=== PATIENT | female | born 1955 | race Caucasian/White ===

== ENCOUNTER 2022-09-09 06:05 | Inpatient (IN) | payer MEDICARE, BC ==
[~2022-09-09] VITALS: Ht 160 cm; Wt 74.8 kg
[~2022-09-09 06:05] MED LIST: LISI40TA4 PO; MAGN200T PO; METO1TAB7 PO; PANT40TA29 PO; VITA100093 PO; ceFAZolin SOD 2 GM in IV 1 EA IV ONE
[2022-09-09] MEDS ORDERED: LR 1,000 ML IV SCH ×2 (06:25→13:00)
[2022-09-09] MEDS ORDERED: propofoL 200 MG/20 ML VIAL As Ordered ONE (07:17)
[2022-09-09] MEDS ORDERED: KETOROLAC 60MG 2ML VIAL As Ordered ONE (07:17)
[2022-09-09] MEDS ORDERED: ACETAMINOPHEN 1000MG 100ML IV BAG As Ordered ONE ×2 (07:17→08:27)
[2022-09-09] MEDS ORDERED: ROCURONIUM BROMIDE 50MG/5ML VIAL As Ordered ONE ×2 (07:17→08:48)
[2022-09-09] MEDS ORDERED: SUGAMMADEX SODIUM 500 MG/5 ML VIAL (BRIDION) As Ordered ONE (07:17)
[2022-09-09] MEDS ORDERED: ONDANSETRON 4MG 2ML VIAL As Ordered ONE (07:17)
[2022-09-09] MEDS ORDERED: HYDROmorphone HCL 2MG/ML 1ML VIAL As Ordered ONE (07:17)
[2022-09-09] MEDS ORDERED: LIDOCAINE 2% 100MG/5ML SDV (FOR ANES.) As Ordered ONE (07:17)
[2022-09-09] MEDS ORDERED: fentaNYL 100 MCG/2 ML INJECTION As Ordered ONE (07:18)
[2022-09-09] MEDS ORDERED: MIDAZOLAM INJ 2MG/2ML VIAL As Ordered ONE (07:18)
[2022-09-09] MEDS ORDERED: SCOPOLAMINE 1MG TRANSDERMAL PATCH TOP ONE (07:25)
[2022-09-09] MEDS ORDERED: LIDOCAINE 1% SDV 30ML VIAL As Ordered ONE (07:29)
[2022-09-09] MEDS ORDERED: MAGN400C2 PO (07:38)
[2022-09-09] MEDS ORDERED: PERCOCET 5MG/325MG TAB PO PRN ×2 (07:40)
[2022-09-09] MEDS ORDERED: ONDANSETRON 4MG 2ML VIAL IV PRN ×2 (07:40→13:00)
[2022-09-09] MEDS ORDERED: HOME MED LIST COMPLETE! XX SCH (07:40)
[2022-09-09] MEDS ORDERED: MANNITOL 25% 12.5GM 50ML VIAL As Ordered ONE (09:33)
[2022-09-09] MEDS ORDERED: ceFAZolin 1GM VIAL As Ordered ONE (11:07)
[2022-09-09] MEDS ORDERED: PHENYLephrine 500MCG 5ML (100MCG/ML) SYRINGE As Ordered ONE (11:25)
[2022-09-09] MEDS ORDERED: ePHEDrine SULFATE 25 MG/5 ML(5MG/ML) SYRINGE As Ordered ONE (11:25)
[2022-09-09] MEDS ORDERED: PHENYLEPHRINE 10MG/ML 1ML VIAL As Ordered ONE (12:04)
[2022-09-09] MEDS ORDERED: oxyCODONE 5MG TAB PO PRN (13:00)
[2022-09-09] MEDS ORDERED: fentaNYL 100 MCG/2 ML INJECTION IV PRN (13:00)
[2022-09-09] MEDS ORDERED: HYDROMORPHONE HCL 0.5 MG/ 0.5 ML SYRINGE IV PRN (13:00)
[2022-09-09] MEDS ORDERED: NALOXONE INJ 0.4MG/1ML VIAL IV STA (14:06)
[2022-09-09 14:10] LABS: HEMATOCRIT 39.7 % (36.0-47.0); HEMOGLOBIN 13.5 g/dl (12.0-15.5); MEAN CORPUSCULAR HEMOGLOBIN 32.4 pg (27.0-33.0); MEAN CORPUSCULAR VOLUME 95.2 fl (80.0-96.0); PLATELET COUNT, AUTOMATED 315 10^3/uL (150-450); RED BLOOD COUNT 4.17 10^6/uL (4.00-5.40); WHITE BLOOD COUNT 21.1 10^3/uL (4.0-10.0)
[2022-09-09 14:33] LABS: BLOOD UREA NITROGEN 19 MG/DL (9-23); CARBON DIOXIDE LEVEL 21 MMOL/L (20-31); CHLORIDE LEVEL 102 MMOL/L (98-107); CREATININE FOR GFR 0.82 MG/DL (0.55-1.30); GLOMERULAR FILTRATION RATE > 60.0 (>45); GLUCOSE, FASTING 164 MG/DL (74-106); POTASSIUM SERUM 4.5 MMOL/L (3.5-5.1); SODIUM LEVEL 138 MMOL/L (136-145)
[2022-09-09 14:37] LABS: ABG HCO3 17.5 MMOL/L (22.0-26.0); ABG O2 SATURATION 99.3 % (95.0-99.0); ABG PARTIAL PRESSURE CO2 36.3 mmHg (35.0-45.0); ABG TOTAL CO2 18.7 MMOL/L (23.0-31.0); ABG pH (ARTERIAL) 7.302 UNITS (7.350-7.450)
[2022-09-09] MEDS: ceFAZolin SOD 1 GM in D5W MINI-BAG PLUS 50 ML IV SCH ×2 (15:48→23:25)
[2022-09-09 16:10] VITALS: BP 111/73; TEMP 97.3; O2SAT 100
[2022-09-09 16:40] VITALS: BP 111/74; TEMP 97.7; O2SAT 100
[2022-09-09 17:40] VITALS: BP 123/72; TEMP 97.3; O2SAT 100
[2022-09-09] MEDS ORDERED: METOCLOPRAMIDE INJ 10MG/2ML VIAL IV PRN (18:05)
[2022-09-09] MEDS: NS 1,000 ML IV SCH ×2 (18:31→20:17)
[2022-09-09 18:40] VITALS: BP 116/68; TEMP 97.7; O2SAT 100
[2022-09-09] MEDS: METOPROLOL SUCC (TopROL XL) 50MG **XL** TAB PO SCH (20:25)
[2022-09-09] MEDS: DOCUSATE SODIUM 100MG CAPSULE PO SCH (20:25)
[2022-09-09 21:03] VITALS: BP 118/62; TEMP 97; O2SAT 100
[2022-09-09] MEDS: ACETAMINOPHEN TAB 650MG DOSE (2X325MG) PO PRN (23:56)
[2022-09-10] VITALS (7 sets, daily range): BP systolic 120–131; BP diastolic 66–80; TEMP 96.8–98.1; O2SAT 99–100
[2022-09-10] MEDS: NS 1,000 ML IV SCH (05:09)
[2022-09-10] MEDS: ACETAMINOPHEN TAB 650MG DOSE (2X325MG) PO PRN ×4 (05:09→21:53)
[2022-09-10 06:33] LABS: HEMATOCRIT 29.9 % (36.0-47.0); MEAN CORPUSCULAR HEMOGLOBIN 32.2 pg (27.0-33.0); MEAN CORPUSCULAR HGB CONC 34.1 g/dl (32.0-36.5); MEAN CORPUSCULAR VOLUME 94.3 fl (80.0-96.0); PLATELET COUNT, AUTOMATED 230 10^3/uL (150-450); RED BLOOD COUNT 3.17 10^6/uL (4.00-5.40)
[2022-09-10 06:46] LABS: HEMOGLOBIN 10.2 g/dl (12.0-15.5)
[2022-09-10 06:58] LABS: BLOOD UREA NITROGEN 22 MG/DL (9-23); CALCIUM LEVEL 8.1 MG/DL (8.3-10.6); CARBON DIOXIDE LEVEL 24 MMOL/L (20-31); CHLORIDE LEVEL 104 MMOL/L (98-107); CREATININE FOR GFR 0.95 MG/DL (0.55-1.30); GLOMERULAR FILTRATION RATE > 60.0 (>45); GLUCOSE, FASTING 115 MG/DL (74-106); POTASSIUM SERUM 4.3 MMOL/L (3.5-5.1); SODIUM LEVEL 137 MMOL/L (136-145)
[2022-09-10] MEDS: DOCUSATE SODIUM 100MG CAPSULE PO SCH ×2 (10:57→21:00)
[2022-09-10] MEDS: PANTOPRAZOLE 40MG TAB (PROTONIX) PO SCH (10:57)
[2022-09-10] MEDS: lisinopriL 40MG TAB PO SCH (10:58)
[2022-09-10] MEDS: METOPROLOL SUCC (TopROL XL) 50MG **XL** TAB PO SCH (21:53)
[2022-09-11 06:16] LABS: HEMATOCRIT 29.2 % (36.0-47.0); MEAN CORPUSCULAR HEMOGLOBIN 32.3 pg (27.0-33.0); MEAN CORPUSCULAR HGB CONC 34.2 g/dl (32.0-36.5); MEAN CORPUSCULAR VOLUME 94.2 fl (80.0-96.0); PLATELET COUNT, AUTOMATED 208 10^3/uL (150-450); WHITE BLOOD COUNT 19.9 10^3/uL (4.0-10.0)
[2022-09-11 06:22] VITALS: BP 126/74; TEMP 97.3; O2SAT 99
[2022-09-11 06:35] LABS: BLOOD UREA NITROGEN 16 MG/DL (9-23); CALCIUM LEVEL 8.6 MG/DL (8.3-10.6); CARBON DIOXIDE LEVEL 28 MMOL/L (20-31); CHLORIDE LEVEL 102 MMOL/L (98-107); CREATININE FOR GFR 0.77 MG/DL (0.55-1.30); GLOMERULAR FILTRATION RATE > 60.0 (>45); GLUCOSE, FASTING 102 MG/DL (74-106); POTASSIUM SERUM 4.1 MMOL/L (3.5-5.1); SODIUM LEVEL 135 MMOL/L (136-145)
[2022-09-11] MEDS: lisinopriL 40MG TAB PO SCH (09:00)
[2022-09-11] MEDS: DOCUSATE SODIUM 100MG CAPSULE PO SCH (09:14)
[2022-09-11] MEDS: PANTOPRAZOLE 40MG TAB (PROTONIX) PO SCH (09:14)
[2022-09-11] MEDS: ACETAMINOPHEN TAB 650MG DOSE (2X325MG) PO PRN (09:14)
[2022-09-11] MEDS ORDERED: COLA100C5 PO (13:55)
[2022-09-11] MEDS ORDERED: TRAM50TA2 PO (13:55)
[2022-09-11 14:00] VITALS: BP 123/73; TEMP 97.9; O2SAT 98
== END 2022-09-11 16:25 | disposition home or self-care (01) | DRG 658 ==
LOC: M OR 06:05 → M MS5PR 16:00
PROVIDERS: ADMIT Urology; ATTEND Urology
PROC: 8E0W4CZ Robotic Assisted Procedure of Trunk Region, Percutaneous Endoscopic Approach (ICD-10-PCS; 2022-09-09)
PROC: 0TB04ZZ Excision of Right Kidney, Percutaneous Endoscopic Approach (ICD-10-PCS; principal; 2022-09-09 07:30)
DX: C64.1 Malignant neoplasm of right kidney, except renal pelvis (principal); Z79.899 Other long term (current) drug therapy; I10 Essential (primary) hypertension; K21.9 Gastro-esophageal reflux disease without esophagitis